=== PATIENT | female | born 1950 | race Caucasian/White ===

== ENCOUNTER 2017-11-25 06:15 | Day surgery (SDC) | payer OTHER | END 2017-11-25 10:20 | disposition home or self-care (01) | LOC: AMB-ENDOS 06:15 | DX: K57.30 Diverticulosis of large intestine without perforation or abscess without bleeding (principal); K62.89 Other specified diseases of anus and rectum ==

== ENCOUNTER 2018-01-19 17:08 | Outpatient (CLI) | payer OTHER | END 2018-01-19 17:10 | disposition home or self-care (01) | LOC: RAD 17:08 → LAB 17:08 | DX: K94.00 Colostomy complication, unspecified (principal); K94.09 Other complications of colostomy; Z93.3 Colostomy status; K57.20 Diverticulitis of large intestine with perforation and abscess without bleeding ==

== ENCOUNTER 2018-01-26 13:15 | Inpatient (IN) | payer OTHER ==
[~2018-01-26] VITALS: Ht 157.5 cm; Wt 79.4 kg
[2018-01-26] MEDS ORDERED: AVAPRO300 MG PO (16:53)
[2018-01-26] MEDS ORDERED: HUMALOG100 UNIT/1 (16:53)
[2018-01-26] MEDS ORDERED: LANTUS SOL100 UNIT/1 (16:53)
[2018-01-26] MEDS ORDERED: NORVASC5 MG PO (16:54)
[2018-01-26] MEDS ORDERED: HYDROCHLOROTH12.5 M1 PO (16:54)
[2018-01-26] MEDS ORDERED: CLONIDINE HCL0.1 MG PO (16:54)
[2018-02-05] MEDS ORDERED: INTESTINEX680 M1 PO (14:00)
[2018-02-05] MEDS ORDERED: ULTRACET PO (14:00)
== END 2018-02-05 15:41 | disposition home or self-care (01) | DRG 330 ==
LOC: SURG 02-02 07:20 → O/R 02-02 07:20 → SURH 02-02 11:30 → SURG 02-02 15:53
PROVIDERS: Surgery; Urology
PROC: 0T788DZ Dilation of Bilateral Ureters with Intraluminal Device, Via Natural or Artificial Opening Endoscopic (ICD-10-PCS; 2018-02-02)
PROC: 4A033R1 Measurement of Arterial Saturation, Peripheral, Percutaneous Approach (ICD-10-PCS; 2018-02-02)
PROC: 3E0F7GC Introduction of Other Therapeutic Substance into Respiratory Tract, Via Natural or Artificial Opening (ICD-10-PCS; 2018-02-02)
PROC: 0DQN4ZZ Repair Sigmoid Colon, Percutaneous Endoscopic Approach (ICD-10-PCS; principal; 2018-02-02 11:30)
PROC: 0DTN4ZZ Resection of Sigmoid Colon, Percutaneous Endoscopic Approach (ICD-10-PCS; 2018-02-02 11:30)
PROC: 4A12X4Z Monitoring of Cardiac Electrical Activity, External Approach (ICD-10-PCS; 2018-02-03)
DX: K57.32 Diverticulitis of large intestine without perforation or abscess without bleeding (principal); K94.09 Other complications of colostomy; I11.9 Hypertensive heart disease without heart failure; G47.33 Obstructive sleep apnea (adult) (pediatric); E66.8 Other obesity; E10.9 Type 1 diabetes mellitus without complications; F17.210 Nicotine dependence, cigarettes, uncomplicated; I87.2 Venous insufficiency (chronic) (peripheral); R09.02 Hypoxemia